=== PATIENT | female | born 1980 | race Caucasian/White ===

== ENCOUNTER 2017-07-11 14:53 | Emergency (ER) | payer BC ==
[~2017-07-11] VITALS: Ht 162.6 cm; Wt 57.0 kg
[~2017-07-11 14:53] MED LIST: AMBI5TAB PO; BACLPOW30 XX; CLEO300C2 PO; ENBR50IN3 SC; HYDR-3129 PO; HYDR15TA PO; NEUR100C PO; PRED5TAB PO; PROZ20CA11 PO; RANI150T PO; SULF1TAB47 PO; THIO1CAP PO; TRIL150T PO; VALI10TA PO; ZYRT10TA12 PO
[2017-07-11 15:04] VITALS: BP 124/60; PULSE 101; RESP 16; TEMP 97.9; O2SAT 98
[2017-07-11] MEDS ORDERED: DIAZ10TA PO (17:15)
[2017-07-11] MEDS ORDERED: PLAQ200T PO (17:15)
[2017-07-11] MEDS ORDERED: HYDR1CAP PO (17:15)
[2017-07-11] MEDS ORDERED: HYDR-3580 PO (17:15)
[2017-07-11] MEDS ORDERED: VORT1TAB3 PO (17:15)
[2017-07-11] MEDS ORDERED: MEDR4TAB PO (17:15)
[2017-07-11] MEDS ORDERED: METH750T PO (17:15)
[2017-07-11] MEDS ORDERED: LURA1TAB2 PO (17:15)
[2017-07-11] MEDS ORDERED: DEXT37.52 PO (17:15)
[2017-07-11] MEDS ORDERED: ENBR50IN2 SQ (17:15)
[2017-07-11] MEDS ORDERED: LIDOCAINE HCL 1% 50 ML VIAL INFIL ONE (17:30)
[2017-07-11] MEDS ORDERED: MORPHINE SULFATE 4 MG/ML INJ IM ONE (17:30)
[2017-07-11] MEDS ORDERED: LIDOCAINE HCL 1% PF 30 ML VIAL INFIL ONE (17:45)
[2017-07-11 18:15] LABS: BILIRUBIN, URINE NEG (NEG); BLOOD, URINE SMALL (NEG); GLUCOSE,URINE NEG (NEG); KETONE, URINE NEG (NEG); NITRITE,URINE NEG (NEG); URINE COLOR YELLOW (YELLW/STRAW); URINE LEUKOCYTE ESTERASE NEG (NEG)
[2017-07-11 18:27] LABS: BACTERIA, URINE FEW /hpf; SQUAMOUS EPITHELIAL CELL URINE 0-5 /hpf (0-5); WBC, URINE 0-2 /hpf (0-5)
[2017-07-11] MEDS ORDERED: BACT800T5 PO (19:07)
--- NOTE | 2017-07-11 19:08 | PD ---
HPI Chief Complaint: Lead Pressman Problem/Complaint Time Seen by Provider: 17:22 Travel History International Travel<30 days: No Contact w/Intl Traveler<30days: No Traveled to known affect area: No History of Present Illness HPI 37yo F with no PMH presents to the ED with c/o swelling in the right labia that is worst this week. Also has some increased urinary frequency and does not know if related. Denies any fever, chest pain, sob, n/v, abdominal pain, vaginal bleeding or discharge. Pt does take hydrocodone for chronic pain. PFSH Past Medical History Arthritis: Yes (RA) Asthma: Yes Autoimmune Disease: Yes (FIBROMYALGIA) Blood Disorders: No Bipolar Disorder: Yes Anxiety: Yes Depression: Yes Heart Rhythm Problems: No Cancer: No Cardiovascular Problems: No High Cholesterol: No Chemotherapy: No Chest Pain: No Congestive Heart Failure: No COPD: No Cerebrovascular Accident: No Diabetes: No Diminished Hearing: No Endocrine: No Fibromyalgia: Yes Gastrointestinal Disorders: Yes GERD: No Glaucoma: No Genitourinary: No Headaches: Yes Hepatitis: Yes (HEP C) Hiatal Hernia: No Hypertension: No Immune Disorder: No Kidney Stones: No Musculoskeletal: Yes (4 BULGING DISCS IN NECK) Neurologic: Yes Psychiatric: Yes (BIPOLAR DISORDER/DEPRESSION SINCE AGE 14) Reproductive: No Respiratory: No Migraines: Yes Myocardial Infarction: No Radiation Therapy: No Renal Failure: No Seizures: No Sickle Cell Disease: No Sleep Apnea: No Thyroid Disease: No ?: Not LMP: MIRENA : 4 Para: 1 : 3 Past Surgical History Abdominal Surgery: No AICD: No Appendectomy: No Arteriovenous Shunt: No Body Medical Devices: NONE Cardiac Surgery: No Section: Yes Cholecystectomy: No Ear Surgery: No Endocrine Surgery: No Eye Surgery: No Genitourinary Surgery: No Gynecologic Surgery: Yes ( 2003) Insulin Pump: No Joint Replacement: No Oral Surgery: Yes (WISDOM TEETH PULLED IN 2004) Pacemaker: No Thoracic Surgery: No Other Surgery: Yes ( 2003) Social History Alcohol Use: No Tobacco Use: Yes (1 PPD) Substance Use: No Allergies-Medications (Allergen,Severity, Reaction): Coded Allergies: penicillin G (Unverified Adverse Reaction, Intermediate, N/V, 07/11/17) Reported Meds & Prescriptions Reported Meds & Active Scripts Active Reported Medrol (Methylprednisolone) 4 Mg Tab 4 Mg PO DAILY Methocarbamol 750 Mg Tab 1,500 Mg PO TID Mydayis ER 24 HR (Amphetamine/Dextroamphetamine) 37.5 Mg Cptp.24hr 37.5 Mg PO DAILY Diazepam 10 Mg Tab 10 Mg PO BID PRN Latuda (Lurasidone) 60 Mg Tab 60 Mg PO DAILY Trintellix (Vortioxetine) 20 Mg Tab 20 Mg PO DAILY Plaquenil (Hydroxychloroquine Sulfate) 200 Mg Tab 200 Mg PO BID Take with food Enbrel PF Inj (Etanercept) 50 mg/ml Syr 50 Mg SQ Q7D Hydrocodone-Acetaminophen 7.5 Mg-325 Mg Tab 1 Tab PO TID PRN Zohydro ER (Hydrocodone ER) 20 Mg Caper 1 Tab PO BID Review of Systems Except as stated in HPI: all other systems reviewed are Neg Physical Exam Narrative GENERAL: 37yo F not in distress. SKIN: Focused skin assessment warm/dry. HEAD: Atraumatic. Normocephalic. EYES: Pupils equal and round. No scleral icterus. No injection or drainage. ENT: No nasal bleeding or discharge. Mucous membranes pink and moist. NECK: Trachea midline. No JVD. CARDIOVASCULAR: Regular rate and rhythm. No murmur appreciated. RESPIRATORY: No accessory muscle use. Clear to auscultation. Breath sounds equal bilaterally. GASTROINTESTINAL: Abdomen soft, non-tender, nondistended. PELVIC: +Induration with central fluctuance in right labia. MUSCULOSKELETAL: No obvious deformities. No clubbing. No cyanosis. No edema. NEUROLOGICAL: Awake and alert. No obvious cranial nerve deficits. Motor grossly within normal limits. Normal speech. PSYCHIATRIC: Appropriate mood and affect; insight and judgment normal. Data Data Last Documented VS Vital Signs Date Time Temp Pulse Resp B/P (MAP) Pulse Ox O2 Delivery O2 Flow Rate FiO2 07/11/17 15:04 97.9 101 16 124/60 (81) 98 Orders Orders Morphine Inj (Morphine Inj) (07/11/17 17:30) Ed Urine Pregnancytest Poc (07/11/17 17:34) Urinalysis - C+S If Indicated (07/11/17 17:34) Lidocaine Pf 1% Inj (Xylocaine-Mpf 1% In (07/11/17 17:45) Labs Laboratory Tests Test 07/11/17 18:07 Urine Color YELLOW Urine Turbidity CLEAR Urine pH 6.0 Urine Specific Badger LESS/EQUAL 1.005 Urine Protein NEG mg/dL Urine Glucose (UA) NEG mg/dL Urine Ketones NEG mg/dL Urine Occult Blood SMALL Urine Nitrite NEG Urine Bilirubin NEG Urine Urobilinogen 0.2 MG/DL Urine Leukocyte Esterase NEG Urine RBC 4-9 /hpf Urine WBC 0-2 /hpf Urine Squamous Epithelial Cells 0-5 /hpf Urine Bacteria FEW /hpf Microscopic Urinalysis Comment CULT NOT INDICATED MDM Medical Decision Making Medical Screen Exam Complete: Yes Emergency Medical Condition: Yes Differential Diagnosis Labial abscess Narrative Course 37yo F with right labia abscess for 1 week. Urine negative. Pt given morphine for pain prior to I&D. UA showed 0-5 WBC. Culture not indicated. I&D performed and purulent discharge was drained from right labia. Pt is well appearing and instructed to return to the ED in 2 days for packing removal and wound check. Procedures Procedure Narrative INCISION AND DRAINAGE OF ABSCESS: The area was prepped and was sterilely draped. A subcutaneous wheal of 1 % Xylocaine with a total number 3 mL was used to anesthetize the area properly. A number 11 scalpel was used to make a 0.5 -cm incision across the area of the abscess. The abscess was drained, complex loculations were broken down, and irrigated with normal saline. Cultures were obtained. Quarter inch iodoform packing was placed in the wound. Sterile dressing applied. Patient advised to have packing removed in two days. Diagnosis Primary Impression: Labial abscess Patient Instructions: General Instructions Departure Forms: Tests/Procedures Additional Instructions: Please follow up with your CL[facility]SRO[facility] MONITOR in 2 days or return to the ED for packing removal and wound check. Med/Other Pt SpecificInfo: Prescription(s) given Scripts Sulfamethoxazole-Trimethoprim (Bactrim DS) 800-160 Mg Tab 1 TAB PO BID for Infection, #14 TAB 0 Refills Prov: GormanAnnabel DO 07/11/17 Disposition: 01 DISCHARGE HOME Condition: Stable Annabel Gorman DO Jul 11, 2017 19:07
[2017-07-11 19:46] VITALS: BP 110/69
== END 2017-07-11 19:48 | disposition home or self-care (01) ==
LOC: PHED 14:53
DX: N76.4 Abscess of vulva (principal); M06.9 Rheumatoid arthritis, unspecified; M79.7 Fibromyalgia; F31.9 Bipolar disorder, unspecified; F17.210 Nicotine dependence, cigarettes, uncomplicated; B19.20 Unspecified viral hepatitis C without hepatic coma; J45.909 Unspecified asthma, uncomplicated; F41.9 Anxiety disorder, unspecified; Z79.899 Other long term (current) drug therapy; Z88.0 Allergy status to penicillin
CPT/HCPCS: 56405; 81001; 84703; 96372; 99283; J2270; 10060

== ENCOUNTER 2017-07-13 15:53 | Emergency (ER) | payer BC ==
[~2017-07-13] VITALS: Ht 162.6 cm; Wt 58.0 kg
[~2017-07-13 15:53] MED LIST changes: +BACT800T5 PO; +DEXT37.52 PO; +DIAZ10TA PO; +ENBR50IN2 SQ; +HYDR-3580 PO; +HYDR1CAP PO; +LURA1TAB2 PO; +MEDR4TAB PO; +METH750T PO; +PLAQ200T PO; +VORT1TAB3 PO
[2017-07-13 15:55] VITALS: BP 112/56; PULSE 73; RESP 16; TEMP 98.3; O2SAT 99
--- NOTE | 2017-07-13 16:15 | PD ---
HPI Chief Complaint: Wound/Suture/Staple Re-Check Time Seen by Provider: 16:01 Travel History International Travel<30 days: No Contact w/Intl Traveler<30days: No Traveled to known affect area: No History of Present Illness HPI 37-year-old female here for packing removal of an abscess to her right labia. She had incision and drainage performed 2 days prior. She reports compliance with the antibiotic. She denies worsening symptoms. No fever, chills, increased pain or drainage from the site. Symptom severity is moderate. PFSH Past Medical History Arthritis: Yes (RA) Asthma: Yes Autoimmune Disease: Yes (FIBROMYALGIA) Blood Disorders: No Bipolar Disorder: Yes Anxiety: Yes Depression: Yes Heart Rhythm Problems: No Cancer: No Cardiovascular Problems: No High Cholesterol: No Chemotherapy: No Chest Pain: No Congestive Heart Failure: No COPD: No Cerebrovascular Accident: No Diabetes: No Diminished Hearing: No Endocrine: No Fibromyalgia: Yes Gastrointestinal Disorders: Yes GERD: No Glaucoma: No Genitourinary: No Headaches: Yes Hepatitis: Yes (HEP C) Hiatal Hernia: No Hypertension: No Immune Disorder: No Kidney Stones: No Musculoskeletal: Yes (4 BULGING DISCS IN NECK) Neurologic: Yes Psychiatric: Yes (BIPOLAR DISORDER/DEPRESSION SINCE AGE 14) Reproductive: No Respiratory: No Migraines: Yes Myocardial Infarction: No Radiation Therapy: No Renal Failure: No Seizures: No Sickle Cell Disease: No Sleep Apnea: No Thyroid Disease: No ?: Not LMP: MIRENA-DOES NOT GET : 4 Para: 1 : 3 Past Surgical History Abdominal Surgery: No AICD: No Appendectomy: No Arteriovenous Shunt: No Body Medical Devices: NONE Cardiac Surgery: No Section: Yes Cholecystectomy: No Ear Surgery: No Endocrine Surgery: No Eye Surgery: No Genitourinary Surgery: No Gynecologic Surgery: Yes ( 2003) Insulin Pump: No Joint Replacement: No Oral Surgery: Yes (WISDOM TEETH PULLED IN 2004) Pacemaker: No Thoracic Surgery: No Other Surgery: Yes ( 2003) Social History Alcohol Use: No Tobacco Use: Yes (1 PPD) Substance Use: No Allergies-Medications (Allergen,Severity, Reaction): Coded Allergies: penicillin G (Unverified Adverse Reaction, Intermediate, N/V, 07/13/17) Reported Meds & Prescriptions Reported Meds & Active Scripts Active Bactrim DS (Sulfamethoxazole-Trimethoprim) 800-160 Mg Tab 1 Tab PO BID Reported Medrol (Methylprednisolone) 4 Mg Tab 4 Mg PO DAILY Methocarbamol 750 Mg Tab 1,500 Mg PO TID Mydayis ER 24 HR (Amphetamine/Dextroamphetamine) 37.5 Mg Cptp.24hr 37.5 Mg PO DAILY Diazepam 10 Mg Tab 10 Mg PO BID PRN Latuda (Lurasidone) 60 Mg Tab 60 Mg PO DAILY Trintellix (Vortioxetine) 20 Mg Tab 20 Mg PO DAILY Plaquenil (Hydroxychloroquine Sulfate) 200 Mg Tab 200 Mg PO BID Take with food Enbrel PF Inj (Etanercept) 50 mg/ml Syr 50 Mg SQ Q7D Hydrocodone-Acetaminophen 7.5 Mg-325 Mg Tab 1 Tab PO TID PRN Zohydro ER (Hydrocodone ER) 20 Mg Caper 1 Tab PO BID Review of Systems Except as stated in HPI: all other systems reviewed are Neg General / Constitutional: No: Fever Physical Exam Narrative GENERAL: Alert and well-appearing 37-year-old female SKIN: Warm and dry. Healing abscess to the right labia. No surrounding cellulitis. HEAD: Normocephalic. EYES: No injection or drainage. NECK: Supple CARDIOVASCULAR: Regular rate and rhythm RESPIRATORY: Breath sounds equal bilaterally. No accessory muscle use. GASTROINTESTINAL: Abdomen soft, non-tender, nondistended. MUSCULOSKELETAL: No cyanosis, or edema. Data Data Last Documented VS Vital Signs Date Time Temp Pulse Resp B/P (MAP) Pulse Ox O2 Delivery O2 Flow Rate FiO2 07/13/17 15:55 98.3 73 16 112/56 (74) 99 MDM Medical Decision Making Medical Screen Exam Complete: Yes Emergency Medical Condition: Yes Differential Diagnosis Packing removal, abscess recheck, cellulitis Narrative Course 37-year-old female here for packing removal to an abscess to the right labia. The area appears to be healing without complication. Patient reports symptom improvement. Packing was removed. Minimal drainage. I do not feel packing needs to be replaced. She was instructed to continue antibiotics as directed. Diagnosis Primary Impression: Abscess packing removal Referrals: Primary Care Physician Additional Instructions: Continue antibiotics as directed. Wound care to the area as directed. Disposition: 01 DISCHARGE HOME Condition: Stable Rosio Chris Jul 13, 2017 16:15
== END 2017-07-13 16:25 | disposition home or self-care (01) ==
LOC: PHED 15:53
DX: N76.4 Abscess of vulva (principal); Z48.01 Encounter for change or removal of surgical wound dressing
CPT/HCPCS: 99281